=== PATIENT | female | born 1950 | race African-American/Black ===

== ENCOUNTER → 2017-06-05 | Outpatient (CLI) | payer MEDICARE, OTHER | END | disposition home or self-care (01) | LOC: MAMMO 13:10 | DX: Z12.31 Encounter for screening mammogram for malignant neoplasm of breast (principal) | CPT/HCPCS: 77063; 77067 ==

== ENCOUNTER → 2018-06-22 | Outpatient (CLI) | payer MEDICARE, OTHER ==
[2015-04-10 22:01] VITALS: BP 146/106
--- NOTE | 2018-06-22 16:08 | KCIC ---
MR of the left hip HISTORY: Left hip pain, fell 4 months ago. Pain is lateral. TECHNIQUE: Routine multiplanar sequences are obtained. FINDINGS: Small foci of serpiginous subchondral signal identified at the anterior left femoral head, too subtle to be specific but raising the question of mild osteonecrosis. No acute marrow edema. No acute fracture. No aggressive bone destruction. No significant joint effusion. No evidence of labral detachment or para labral cyst. No advanced primary osteoarthritis Gluteus minimus and medius tendons are intact. Hamstring tendinosis with partial degenerative tearing but no acute rupture. Iliopsoas tendon intact. Rectus femoris tendon intact. Diagnostically limited large [id number] coronal survey sequence demonstrates a moderate size right para labral cyst with apparent underlying labral tear. Right hamstring tendinosis. IMPRESSION: 1. Small foci of somewhat serpiginous signal at the anterior left femoral head, too subtle to be specific but does raise a question of mild femoral head osteonecrosis. 2. Limited visualization of the right hip demonstrates a right labral tear with para labral cyst. 3. Bilateral hamstring tendinosis. Electronically signed by: Maxime Novak MD (06/22/2018 4:05 PM) [facility]
--- NOTE | 2018-06-22 16:14 | KCIC ---
MR of the left wrist HISTORY: Left wrist pain after a fall 4 months ago. Pain radial. TECHNIQUE: Routine multiplanar sequences are obtained. FINDINGS: The triangular fibrocartilage disc is heterogeneous, compatible with degeneration. No full-thickness tear is seen. Extensor carpi ulnaris tendon demonstrates mild tendinosis. No tear or subluxation. Extensor pollicis brevis and abductor pollicis longus tendons are mildly thickened and heterogeneous, with mild tendon sheath fluid. Flexor tendons are intact. Median nerve unremarkable. Full-thickness defect through the proximal central component of the scapholunate ligament. The anterior and posterior bands are somewhat thick and heterogeneous but no disruption. No evidence of lunotriquetral ligament tear. No significant lunate tilt. Small carpal cysts are identified throughout, likely degenerative. No aggressive bone destruction or acute fracture. No large joint effusion. IMPRESSION: 1. First extensor compartment (de Quervain's) tenosynovitis. 2. Mild extensor carpi ulnaris tendinosis. 3. Triangular fibrocartilage disc degeneration. 4. Small full-thickness defect or tear of the central scapholunate ligament, without involvement of anterior or posterior band. Electronically signed by: Maxime Novak MD (06/22/2018 4:11 PM) [facility]
== END | disposition home or self-care (01) ==
LOC: KCIC MRI 12:11
PROVIDERS: ATTEND Nurse Practitioner Family
DX: S73.192A Other sprain of left hip, initial encounter (principal); M65.4 Radial styloid tenosynovitis [de Quervain]; M77.8 Other enthesopathies, not elsewhere classified; X58.XXXA Exposure to other specified factors, initial encounter; Y93.89 Activity, other specified; Y92.89 Other specified places as the place of occurrence of the external cause; Y99.8 Other external cause status
CPT/HCPCS: 73221; 73721

== ENCOUNTER → 2018-08-13 | Outpatient (CLI) | payer MEDICARE, OTHER ==
[2015-04-10 22:01] VITALS: BP 146/106
--- NOTE | 2018-08-14 15:54 | RAD ---
DATE: 08/13/2018 EXAM: MAMMO KHADIJAH SCREENING BILATERAL HISTORY: Routine screening COMPARISON: 03/03/2014, 03/09/2015, 06/05/2017 mammographic exams This study was interpreted with the benefit of Computerized Aided Detection (CAD). Breast Density: HETERO The breast parenchyma is heterogenously dense, which could reduce sensitivity of mammography. Breast parenchyma level C. FINDINGS: Benign calcifications are present. No suspicious mass or distortion. IMPRESSION: Stable. BI-RADS CATEGORY: 1 NEGATIVE RECOMMENDED FOLLOW-UP: 12M 12 MONTH FOLLOW-UP PQRS compliance statement: Patient information was entered into a reminder system with a target due date in one year for the next mammogram. Mammography is a sensitive method for finding small breast cancers, but it does not detect them all and is not a substitute for careful clinical examination. A negative mammogram does not negate a clinically suspicious finding and should not result in delay in biopsying a clinically suspicious abnormality. "Our facility is accredited by the [employer] Mammography [employer]."
== END | disposition home or self-care (01) ==
LOC: MAMMO 10:22
PROVIDERS: ATTEND Nurse Practitioner Family
DX: Z12.31 Encounter for screening mammogram for malignant neoplasm of breast (principal); R92.8 Other abnormal and inconclusive findings on diagnostic imaging of breast
CPT/HCPCS: 77063; 77067

== ENCOUNTER → 2020-01-06 | Outpatient (CLI) | payer MEDICARE, OTHER ==
[2015-04-10 22:01] VITALS: BP 146/106
--- NOTE | 2020-01-06 14:58 | RAD ---
EXAM: CT pelvis without IV contrast DATE: 01/06/2020 2:30 PM COMPARISON: No prior INDICATION: Reason: R GROIN PAIN / Spl. Instructions: / History: TECHNIQUE: CT the pelvis was performed without IV contrast. Axial, coronal and sagittal reformatted images were generated. PQRS compliance statement - One or more of the following individualized dose reduction techniques were utilized for this study: 1. Automated exposure control 2. Adjustment of the mA and/or kV according to patient size 3. Use of iterative reconstruction technique FINDINGS: Bone: Serpentine sclerotic line with heterogeneous marrow sclerosis of the right femoral head involves approximately 75 percent of the right femoral head consistent with osteonecrosis. No definite associated collapse is seen. There is mild right hip joint space narrowing anteriorly and posteriorly with associated proliferative change. There is also femoral head osteonecrosis of the left femoral head involving approximately 40 percent of the superior femoral head. Left hip joint degenerative changes are also seen. No acute fracture or dislocation. Degenerative changes of lower lumbar spine are seen. Aortobiiliac calcifications are seen. Small fat-containing periumbilical hernia is seen. Visceral contents: Moderate colonic stool content is seen. Appendix is normal. Small fat-containing periumbilical hernia is seen. Borderline bladder wall thickening may be seen with cystitis or under distended state. No pelvic mass or lymphadenopathy. IMPRESSION: 1. Bilateral femoral head osteonecrosis, greater involvement on the right, without collapse. Bilateral hip joint degenerative changes are seen. 2. No acute fracture or dislocation. 3. Borderline bladder wall thickening may be seen with cystitis or under distended state. Electronically signed by: Chilango Whitman MD (01/06/2020 2:54 PM) [facility]
--- NOTE | 2020-01-06 16:18 | RAD ---
EXAM: CT OF THE CHEST WITHOUT CONTRAST. HISTORY: Chest pain. TECHNIQUE: Computed tomography of the chest was performed without intravenous contrast. One or more of the following individualized dose reduction techniques were utilized for this examination: 1. Automated exposure control. 2. Adjustment of the mA and/or kV according to patient size. 3. Use of iterative reconstruction technique. COMPARISON: None. FINDINGS: Images of the upper abdomen reveal a 3.1 cm benign cyst in the right renal interpolar region.. Bone windows reveal no suspicious lesions. Sternoclavicular osteoarthritis is moderate to severe on the right and moderate on the left with associated capsular hypertrophy. Acromioclavicular osteoarthritis is moderate bilaterally. No suspicious clavicular lesions are identified. There is no surrounding suspicious soft tissue lesion. There is a moderate disc protrusion containing a vacuum disc phenomenon at T7-8. This results in left lateral recess stenosis and measures 6 mm anteroposteriorly. Chronic compression deformities are mild at T3 and moderate at T12. Degenerative disc disease is moderate to severe from C4 through C7. There are no pathologically enlarged mediastinal or axillary lymph nodes. There is no pleural or pericardial effusion. The heart is not enlarged. There is a common origin of the left common carotid and brachiocephalic arteries, a variant of normal. There are moderate apical predominant emphysematous changes. There is mild atelectasis in the bases. IMPRESSION: 1. 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 No suspicious clavicular lesions. 2. Moderate centrilobular emphysema. Electronically signed by: Cody Agustin MD (01/06/2020 4:16 PM) [facility]
--- NOTE | 2020-01-06 16:31 | RAD ---
EXAM: 1. Frontal chest with 4 view right rib series. 2. Right clavicle 2 views. HISTORY: Right chest and clavicular pain. COMPARISON: None. FINDINGS: The colon chronic obstructive pulmonary disease interstitial opacities in the bases are consistent with atelectasis or interstitial lung disease. There is no pneumothorax or pleural effusion. There are atherosclerotic calcifications of the aorta. The heart is not enlarged. No clavicular fracture is identified. Sternoclavicular osteoarthritis is moderate to severe on the right and moderate on the left. Right acromioclavicular osteoarthritis is moderate. Inferiorly directed clavicular spurs measure up to 4 mm. IMPRESSION: 1. No displaced right rib fractures. 2. Sternoclavicular and acromioclavicular osteoarthritis. No clavicular fracture. 3. Chronic obstructive pulmonary disease. Electronically signed by: Cody Agustin MD (01/06/2020 4:28 PM) [facility]
== END ==
LOC: CT 13:44
PROVIDERS: ATTEND Nurse Practitioner Family
DX: M87.851 Other osteonecrosis, right femur (principal); J43.2 Centrilobular emphysema; M19.011 Primary osteoarthritis, right shoulder
CPT/HCPCS: 71101; 71250; 73000; 73700

== ENCOUNTER → 2020-01-21 | Outpatient (CLI) | payer MEDICARE, OTHER ==
[2015-04-10 22:01] VITALS: BP 146/106
--- NOTE | 2020-01-21 14:11 | KCIC ---
EXAM: Bilateral digital screening mammogram with tomosynthesis. HISTORY: 69-year-old female presents for screening mammography. TECHNIQUE: Full-field digital craniocaudal and mediolateral oblique 2D and 3D tomosynthesis images of both breasts are obtained for evaluation. Computer aided detection with [employer] software version 9.3 was applied. COMPARISON: 08/13/2018 BREAST PARENCHYMAL DENSITY: Level D - Extremely dense. FINDINGS: There is no new suspicious mass, microcalcification or region of architectural distortion. There are stable areas of nodularity and asymmetry within both breasts. There are benign calcifications. IMPRESSION: BI-RADS Category 2: Benign finding(s). RECOMMENDATION: Annual mammography is recommended. If your mammogram demonstrates that you have dense breast tissue, which could hide abnormalities, and if you have other risk factors for breast cancer that have been identified, you might benefit from supplemental screening tests that may be suggested by your ordering physician. Dense breast tissue, in and of itself, is a relatively common condition. This information is not provided to cause undue concern, but rather to raise your awareness and to promote discussion with your physician regarding the presence of other risk factors, in addition to dense breast tissue. A report of your mammography results will be sent to you and your physician. You should contact your physician if you have any questions or concerns regarding this report. Mammography is a sensitive method for finding small breast cancers, but it does not detect them all and is not a substitute for careful clinical examination. A negative mammogram does not negate a clinically suspicious finding and should not result in delay in biopsying a clinically suspicious abnormality. PQRS compliance statement - Patient information was entered into a reminder system with a target due date for the next mammogram. "Our facility is accredited by the [employer] Mammography [employer]." Electronically signed by: Marcia Rashid MD (01/21/2020 2:08 PM) [id number]
--- NOTE | 2020-01-21 14:51 | KCIC ---
INDICATION: Osteoporosis screening. Postmenopausal screening COMPARISON: None. TECHNIQUE: Bone densitometry was performed through the lumbar spine and proximal femur. FINDINGS: Lumbar Spine: BMD: 1.0 T-Score: -0.3 Proximal Femur: BMD: 0.66 T-Score: -2.3 IMPRESSION: 1. Lumbar spine falls within the normal range. 2. Proximal femur falls within the osteopenic on the border with osteoporotic range. Electronically signed by: Tom Lezama MD (01/21/2020 2:49 PM) [id number]
== END ==
LOC: KCIC DEXA 12:55
PROVIDERS: ATTEND Nurse Practitioner Family
DX: Z12.31 Encounter for screening mammogram for malignant neoplasm of breast (principal); M89.9 Disorder of bone, unspecified; M85.852 Other specified disorders of bone density and structure, left thigh
CPT/HCPCS: 77063; 77067; 77080

== ENCOUNTER → 2020-05-03 | Outpatient (CLI) | payer MEDICARE, OTHER ==
[2015-04-10 22:01] VITALS: BP 146/106
--- NOTE | 2020-05-03 17:45 | KCIC ---
Left foot 3 views INDICATION: Left foot pain for several months, especially the first digit in the medial aspect. COMPARISON: None. FINDINGS: There is anatomic alignment. Profound osteopenia is evident but no fracture or aggressive appearing b santi lesions are seen. Joint space narrowing in the first MTP joint is present without subchondral scl erosis. No soft tissue swelling. There is digital clubbing in the digits best appreciated in the firs t and second digits. No arterial vascular calcifications. No radiopaque foreign body or abnormal soft tissue gas. IMPRESSION: Osteopenia and first MTP joint degenerative changes. No fracture or aggressive osseous lesions seen. Electronically signed by: Adwoa Dawson MD (05/03/2020 5:42 PM) [id number]
--- NOTE | 2020-05-03 18:15 | KCIC ---
EXAM: CT Abdomen and Pelvis without IV contrast INDICATION: Reason: RLQ pain since February, constipation. / Spl. Instructions: / History: Hx. Rt in guinal hernia repair. TECHNIQUE: Multi-detector row CT images were acquired from the lung bases through the abdomen and pel vis without the use of IV contrast. Sagittal and coronal images were acquired from the transaxial schuyler a. All CT scans performed at this facility utilize dose optimization techniques as appropriate to the exam, including the following: Automated exposure control and adjustment of the mA and/or KV accordi ng to patient size (this includes techniques or standardized protocols for targeted exams where dose is indication/reason for exam). ORAL CONTRAST: None COMPARISON: None FINDINGS: The absence of IV contrast limits evaluation of soft tissue pathology. LOWER CHEST: Unremarkable LIVER: Unremarkable BILIARY SYSTEM: Gallbladder is unremarkable. Bile ducts are not dilated. PANCREAS: Unremarkable SPLEEN: Unremarkable ADRENALS: Unremarkable KIDNEYS & URETERS: A 3 cm low-density lesion in the superior pole and a subcentimeter low-density le swati in the inferior pole left kidney are statistically likely to be cysts. These do not need additio nal imaging follow-up. BLADDER: Unremarkable REPRODUCTIVE ORGANS: Unremarkable GASTROINTESTINAL: Stomach and small bowel are unremarkable. The colon shows some fibrofatty infiltrat ion of the wall of the ascending colon. Few colonic diverticuli are also noted. No findings of acute diverticulitis. The appendix is normal. MESENTERY/PERITONEUM/RETROPERITONEUM: Unremarkable VASCULAR: Mild ectasia of the infrarenal abdominal aorta to 2.5 cm along with scattered arterial any cifications abdominal aorta and pelvic inflow vessels. LYMPH NODES: There is a medial right external iliac lymph node (image 68 of series 2) that is border line enlarged, measuring 9 mm in short axis and 2 cm in long axis. OSSEOUS & SOFT TISSUES: There is mild levoscoliosis. A spinal stimulator electrode generator is pres ent in the right flank, entering the posterior aspect of the central canal at the lower thoracic spin e at T11-T12. An old superior endplate compression fracture at T12 20 percent loss of height is noted . There is sclerosis in the right femoral head, associated with a cortical lucency suspicious for an age-indeterminate fracture. Ventral hernia mesh repair surgical changes are also incidentally noted b eneath the umbilicus. IMPRESSION: 1. 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 This could contribute to patient's complaints of right lower quadrant pain. Correlate clinically. 2. Fibrofatty infiltration of the ascending colon is nonspecific but could reflect the sequelae of pr ior large bowel inflammation. Otherwise no acute findings in the abdomen or pelvis. 3. An asymmetrically enlarged medial right external iliac lymph node is favored reactive. Reassessmen t on follow-up could be beneficial. Electronically signed by: Adwoa Dawson MD (05/03/2020 6:12 PM) [id number]
== END ==
LOC: KCIC CT 12:17
PROVIDERS: ATTEND Nurse Practitioner Family
DX: K43.9 Ventral hernia without obstruction or gangrene (principal); K57.30 Diverticulosis of large intestine without perforation or abscess without bleeding; K59.00 Constipation, unspecified
CPT/HCPCS: 73620; 74176

== ENCOUNTER → 2021-01-23 | Outpatient (CLI) | payer MEDICARE, OTHER ==
[2015-04-10 22:01] VITALS: BP 146/106
--- NOTE | 2021-01-23 10:14 | KCIC ---
PQRS Compliance Statement: One or more of the following individualized dose reduction techniques were utilized for this examinat ion: 1. Automated exposure control 2. Adjustment of the mA and/or kV according to patient size 3. Use of iterative reconstruction technique CT NECK SOFT TISSUE WITHOUT CONTRAST 01/23/2021 9:20 AM Indication: Clavicular lump on the right side COMPARISON: None available. TECHNIQUE: Multiple axial CT images of the were obtained without intravenous contrast. Coronal and sa gittal reformats are provided. FINDINGS: No suspicious abnormality identified involving the visualized portions of the brain parenchyma and po sterior fossa. The skull base is normal. Mild mucosal thickening of the right maxillary sinus. Orbita l contents appear normal. The sella turcica and cavernous sinus regions appear intact. The mastoid ai r cells are well aerated. The fossa of Rosenmuller is normal. Nasopharynx is normal in appearance. The parotid space contents a nd gypsum block setter space contents appear intact. The parapharyngeal spaces are normal. The submandibular contents appear intact. Oral cavity, floor of mouth and sublingual space appear normal.. Oropharynx is normal in appearance. The epiglottis, aryepiglottic folds, and piriform sinuses are nor mal. The vallecula appears normal. The larynx and trachea are normal. The thyroid gland is normal in appearance. The carotid space contents are normal. No pathologically enlarged cervical lymph nodes. The perivertebral space contents are normal. The supraclavicular regions appear intact. Moderate cer vical spondylosis with 3 mm retrolisthesis of C5 on C6. 3 mm retrolisthesis of C6 on C7. Moderate fac et arthropathy. No prevertebral edema. Asymmetric osteoporosis involving the right sternoclavicular j oint. Productive marginal osteophytosis and joint space narrowing. IMPRESSION: No pathologically enlarged cervical lymph nodes. No suspicious laryngeal or pharyngeal mass. Marker indicating area of palpable abnormality corresponds with the right sternoclavicular joint. Asy mmetric sternoclavicular osteoarthrosis identified in this region. Electronically signed by: Padmini Thakkar MD (01/23/2021 10:12 AM) [id number]
--- NOTE | 2021-01-23 10:28 | KCIC ---
PQRS Compliance Statement: One or more of the following individualized dose reduction techniques were utilized for this examinat ion: 1. Automated exposure control 2. Adjustment of the mA and/or kV according to patient size 3. Use of iterative reconstruction technique CT LOW DOSE LUNG SCREEN 01/23/2021 9:20 AM Indication: History of cigarette smoking. Smoker 50 years, quit May 2020 COMPARISON: None available. TECHNIQUE: Multiple axial CT images of the chest were obtained without intravenous contrast utilizing low-dose technique. Coronal and sagittal reformats are provided. FINDINGS: 3 mm calcified granuloma identified in the medial left upper lobe (series 6, image 14). Moderate to a dvanced centrilobular pulmonary emphysema. Mild bronchial wall thickening compatible with nonspecific bronchitis. Bibasilar subsegmental atelectasis. No pleural effusions, pulmonary vascular congestion or pneumothorax. Thyroid gland is normal in appearance. Heart size within normal limits. There is no pericardial effusion. Thoracic aorta is normal in course and caliber with minor calcified atheromatou s plaque. No pathologically enlarged thoracic lymph nodes. Superior pole right renal cyst measures 2. 3 cm. Spinal stimulator leads are identified within the epidural space terminating at T6 vertebral le katie. IMPRESSION: Spacious solid noncalcified pulmonary nodules. Lung RADS category 1, negative. Recommend low-dose saloni st CT in one year. Moderate to advanced centrilobular pulmonary emphysema. Electronically signed by: Padmini Thakkar MD (01/23/2021 10:25 AM) [id number]
== END ==
LOC: KCIC CT 09:17
PROVIDERS: ATTEND Nurse Practitioner Family
DX: Z12.2 Encounter for screening for malignant neoplasm of respiratory organs (principal); R91.8 Other nonspecific abnormal finding of lung field; J98.11 Atelectasis; J43.2 Centrilobular emphysema; J84.10 Pulmonary fibrosis, unspecified; M89.8X1 Other specified disorders of bone, shoulder; M47.812 Spondylosis without myelopathy or radiculopathy, cervical region; M19.09 Primary osteoarthritis, other specified site; M25.78 Osteophyte, vertebrae; I70.0 Atherosclerosis of aorta; N28.1 Cyst of kidney, acquired; Z87.891 Personal history of nicotine dependence
CPT/HCPCS: 70490; 71271

== ENCOUNTER → 2021-02-22 | Outpatient (CLI) | payer MEDICARE, OTHER ==
[2015-04-10 22:01] VITALS: BP 146/106
--- NOTE | 2021-02-23 11:39 | RAD ---
INDICATION : Routine Screening. COMPARISON: Multiple priors including May 2017 TECHNIQUE: Standard mammogram screening views of the bilateral breasts were obtained.. CAD was utiliz ed. FINDINGS: The breasts are heterogenous density. Scattered benign-appearing calcifications are again seen witho ut a definite new suspicious mass. IMPRESSION: BI-RADS Category 2: Benign findings. Recommend follow-up screening exam in one year. The patient was placed into the recall system with a suggested recall date for follow up imaging. Mammography is the most sensitive method for finding small breast cancers, but it does not detect the m all and is not a substitute for careful clinical examination. A negative mammogram does not negate a clinically suspicious finding and should not result in delay in biopsying a clinically suspicious abnormality. Electronically signed by: Tom Lezama MD (02/23/2021 11:37 AM) [id number]
== END ==
LOC: MAMMO 15:21
PROVIDERS: ATTEND Family Medicine
DX: Z12.31 Encounter for screening mammogram for malignant neoplasm of breast (principal)
CPT/HCPCS: 77067